=== PATIENT | female | born 1955 | race Caucasian/White ===

== ENCOUNTER 2017-03-31 15:29 | Emergency (ER) | payer MEDICARE ==
--- NOTE | ~2017-03-31 | CR63 ---
[facility] A Service of [facility] & [facility] RADIOLOGY TEXT RESULTS PATIENT: WANDY CARBONE LOCATION: CFTX : 53 UNIT #: [id number] AGE: [address]: Radha Morgan APRN SEX: F ORDER DR: [id number] [facility] [address] [place], [place] [address] [id number] E MR#: [id number] Acc #: [id number] NAME: WANDY CARBONE : 1955 SEX: F STUDY DATE/TIME: 03/31/2017 17:45 UNIT: CFID ROOM: STUDY DESCRIPTION: CR Chest 2 View Attending Physician: Radha Morgan A.P.R.N. Ordering Physician: Ed Doctor [id number] [facility] Primary Care Physician: Bob Stallings M.D. MEDICAL IMAGING REPORT This report is preliminary unless electronic signature is present EXAM PA and lateral chest HISTORY Cough and congestion for 4 days. FINDINGS 2 views of the chest demonstrate the cardiac size and pulmonary vascularity are normal. No airspace infiltrates or effusions. Mild interstitial prominence in both lungs could be secondary to interstitial scarring but is nonspecific. [id number] hypertrophic and degenerative changes upper and lower thoracic spine. IMPRESSION 1. No acute findings. 2. Mild interstitial prominence in both lungs could be due to interstitial scarring but is nonspecific. No focal airspace infiltrates or effusions. Dictated by... Man Brice M.D. THIS IS AN ELECTRONICALLY VERIFIED REPORT Man Brice M.D. at 04/01/2017 3:03 PM VIPIN/frank TD: 04/01/2017 06:15 JOB #: [id number] MEDICAL IMAGING REPORT Page 1 of 1 COPY
[~2017-03-31 15:29] MED LIST: ALPRAZOLAM0.5 MG PO; CALCIUM + D 6001 TA1 PO; CENTRUM SILVER PO; CLOBETASOL E 0.60 GM TOP; CLONIDINE HCL0.1 M1 PO; DILTIAZEM PO; METFORMIN HCL1000 M1 PO; PREVACID SOLUTA30 M1 PO
== END 2017-03-31 19:22 | disposition home or self-care (01) ==
LOC: CED 15:29 → CFTX 15:29
DX: J20.9 Acute bronchitis, unspecified (principal); H66.91 Otitis media, unspecified, right ear
CPT/HCPCS: 71020; 94640; 99283; J2930